=== PATIENT | female | born 1940 | race Caucasian/White ===

== ENCOUNTER 2018-07-27 21:26 | Emergency (ER) | payer OTHER ==
[2018-07-27] MEDS ORDERED: OXYCODONE/APAP 5/325 TAB PO ONE (21:53)
--- NOTE | 2018-07-27 21:57 | EDPHY ---
H & P Stated Complaint: tripped fell from standing now having bilat rib pain no LOC Time Seen by Provider: 07/27/18 21:40 HPI/ROS: CHIEF COMPLAINT: Bilateral anterior rib pain post mechanical fall HISTORY OF PRESENT ILLNESS: 78-year-old female via private vehicle. Patient [place] from [place], she was at [facility] this evening when she tripped on her grandchildren falling forward impacting her bilateral anterior lower ribs. Complaining of pain in same location. No abdominal pain. No back or flank pain. No head injury. No alcohol or drug use. This was a mechanical, non syncopal episode. PRIMARY CARE PROVIDER: [place] state REVIEW OF SYSTEMS: 10 systems reviewed and negative with the exception of the elements mentioned in the history of present illness PAST MEDICAL/SURGICAL HISTORY: no anticoagulant use, no relevant medical/ surgical history SOCIAL HISTORY: denies alcohol use at time of incident PHYSICAL EXAM 1) GENERAL: Well-developed, well-nourished, alert and oriented. Appears to be in no acute distress. Answering questions appropriately. 2) HEAD: Normocephalic, atraumatic 3) HEENT: Pupils equal, round, reactive to light bilaterally. Negative Horners. Nasopharynx, oropharynx, clear. No deformity or angulation of nose. No septal hematoma. No rhinorrhea. No oral trauma. Ears bilaterally with normal tympanic membranes. No hemotympanum. No fluid or blood in the external auditory canal. No raccoon eyes. No Deal sign. Teeth are normally aligned with no gross malocclusion, TMJ bilaterally nontender, facial bones nontender including the zygomatic arch, maxilla mandible. 4) NECK: No cervical collar is on. Posterior cervical spine is nontender, no stepoff, no effusion. Full range of motion which does not elicit any midline cervical spine pain, no posterior midline tenderness, no step-off. 5) LUNGS: Clear to auscultation bilaterally, no wheezes, no rhonchi, no retractions. No obvious signs of trauma. Tender to palpation anterior clavicular line bilaterally lower ribs just inferior to the breasts. No visible signs of trauma. No flaring, no grunting. Moving symmetrically. No crepitus. 6) HEART: [Regular rate and rhythm, 7) ABDOMEN: No guarding, no rebound, no focal tenderness, no peritoneal signs, no signs of trauma, no ecchymosis. Specific attention paid to the right upper quadrant, patient has no pain location of her liver. No pain in the left upper quadrant left flank. 8) MUSCULOSKELETAL: Moving all extremities, no focal areas of tenderness, no obvious trauma. 9) BACK: No midline vertebral tenderness, no fluctuance, no step-off, no obvious trauma, no visual or palpable abnormality. 10) SKIN: No laceration. No abrasion DIFFERENTIAL DIAGNOSIS: In no particular order including but not limited to rib fracture, contusion, pneumothorax, hemothorax - Personal History Current Tetanus/Diphtheria Vaccine: Yes Current Tetanus Diphtheria and Acellular Pertussis (TDAP): Yes Tetanus Vaccine Date: 2017 - Medical/Surgical History Hx Asthma: Yes Hx Chronic Respiratory Disease: No Hx Diabetes: No Hx Cardiac Disease: No Hx Renal Disease: No Hx Cirrhosis: No Hx Alcoholism: No Hx HIV/AIDS: No Hx Splenectomy or Spleen Trauma: No Other PMH: bilat knee replacements, Htn, asthma, osteopenia - Social History Smoking Status: Former smoker Constitutional: Initial Vital Signs Temperature (C) 37.5 C 07/27/18 21:26 Heart Rate 82 07/27/18 21:26 Respiratory Rate 18 07/27/18 21:26 Blood Pressure 201/107 H 07/27/18 21:26 O2 Sat (%) 92 07/27/18 21:26 O2 Delivery Mode Room Air Allergies/Adverse Reactions: azithromycin Allergy (Verified 07/27/18 21:39) Sulfa (Sulfonamide Antibiotics) Allergy (Verified 07/27/18 21:34) flu vaccine Allergy (Uncoded 07/27/18 21:34) Home Medications: Medication Instructions Recorded Advair 250/50 (*) 07/27/18 Amlodipine Besylate 07/27/18 Lisinopril 07/27/18 Multivitamin 07/27/18 Tolterodine Tartrate 07/27/18 oxyCODONE/APAP 5/325 [Percocet 1 tab PO Q6 #10 tab 07/27/18 5/325] Medical Decision Making ED Course/Re-evaluation: Doubt intra-abdominal solid organ injury such as hepatic injury, splenic injury. Patient was re-evaluated with serial exams. She is feeling moderation of her symptoms after oral analgesia. Discussed her imaging studies showing no pneumothorax, no hemothorax, no definitive rib fracture. We discussed limitations of x-ray informed that occult rib fracture not ruled out. At This time I do not think that CT imaging indicated. She has been given incentive spirometer with instructions on usage. She feels comfortable being discharged. Red flag signs and symptoms and reasons to return to the ER were discussed with patient. She and family members feel comfortable being discharged. Patient feels comfortable being discharged. All questions and concerns addressed by myself. Patient given my usual and customary discharge precautions and instructions regarding their clinical impression. Care of patient under supervision of secondary supervising physician Dr Pradhan - Data Points Medications Given: Discontinued Medications Oxycodone/Acetaminophen (Percocet 5/325) 1 tab PO EDNOW ONE Stop: 07/27/18 21:54 Last Admin: 07/27/18 21:55 Dose: 1 tab Oxycodone/Acetaminophen (Percocet 5/325mg Prepack#4) 1 btl TAKEHOME EDNOW ONE Stop: 07/27/18 22:39 Last Admin: 07/27/18 22:44 Dose: 1 btl Departure - Departure Disposition: Home, Routine, Self-Care Clinical Impression: Painful rib Condition: Good Instructions: Oxycodone/Acetaminophen (By mouth), Rib Contusion (ED) Additional Instructions: Return to the emergency department if you develop shortness of breath, worsening pain, if you develop abdominal pain or any other symptoms that concern you Referrals: [facility] [Other] - 2-3 days, call for appt. Prescriptions: oxyCODONE/APAP 5/325 [Percocet 5/325] 1 tab PO Q6 #10 tab
[2018-07-27] MEDS ORDERED: OXYCODONE/APAP 5/325MG PREPACK#4 BTL TAKEHOME ONE (22:38)
[2018-07-27 22:42] VITALS: BP 177/108
== END 2018-07-27 22:57 | disposition home or self-care (01) ==
DX: R07.81 Pleurodynia (principal); I10 Essential (primary) hypertension; W01.198A Fall on same level from slipping, tripping and stumbling with subsequent striking against other object, initial encounter; Y92.59 Other trade areas as the place of occurrence of the external cause